=== PATIENT | male | born 1975 | race Caucasian/White ===

== ENCOUNTER 2017-04-15 11:46 | Outpatient (CLI) | END 2017-04-15 11:47 | disposition home or self-care (01) | LOC: LAB 11:46 | PROVIDERS: ATTEND Physician Assistant | DX: D64.9 Anemia, unspecified (principal); R50.9 Fever, unspecified; R53.83 Other fatigue | CPT/HCPCS: 36415; 80053; 84439; 84443; 85025; 85045; 85651; 86308; 86664 ==